=== PATIENT | male | born 1995 | race Caucasian/White ===

== ENCOUNTER 2020-01-18 02:48 | Emergency (ER) | payer OTHER ==
[~2020-01-18] VITALS: Ht 180 cm; Wt 99.7 kg
--- OUTSIDE RECORDS SUMMARY | 2020-01-18 02:57 | XMS REPORT | Continuity of Care Document ---
Author Organization Unknown Address Unknown Phone Unavailable Allergies There is no data. Medications There is no data. Problems There is no data. Procedures There is no data. Results There is no data. Encounters ACCT No. Visit Date/Time Discharge Status Pt. Type Provider Facility Loc./Unit Complaint [id number] 01/18/2020 02:53:[address] Emergency GORGE FERRER DO Via [facility] RT HAND, MIDDLE FINGER SMASH ED-
[2020-01-18] MEDS ORDERED: TETANUS,DIPTH,PERTUSS P/F (BOOSTRIX) 0.5 ML VIAL IM ONE (03:00)
[2020-01-18] MEDS ORDERED: LIDOCAINE 1% INJ 20 ML 20 ML VIAL INJ ONE (03:00)
--- NOTE | 2020-01-18 03:07 | ED Upper Extremity ---
General Stated Complaint: RT HAND, MIDDLE FINGER SMASHED-WC Source: patient History of Present Illness Date Seen by Provider: Jan 18, 2020 Time Seen by Provider: 02:54 Initial Comments PT ARRIVES VIA POV FROM WORK AT [facility] HE WAS USING A SLEDGE HAMMER, AND HIS HAND SLIPPED AND IT HIT A METAL BAR, AND HIS RIGHT MIDDLE FINGER WAS SMASHED BETWEEN THE METAL BAR AND THE HANDLE OF THE SLEDGE HAMMER OCCURRED JUST PRIOR TO ARRIVAL NO OTHER INJURIES NO PRIOR INJURY TO THIS HAND PT IS RIGHT HANDED LAST TETANUS SHOT IS UNKNOWN Allergies and Home Medications Allergies Coded Allergies: No Allergy Information Available (Unverified , 01/18/20) Patient Home Medication List Home Medication List Reviewed: Yes Review of Systems Constitutional: no symptoms reported Musculoskeletal: see HPI Skin: other (NAIL NEARLY COMPLETELY AVULSED) Psychiatric/Neurological: No Symptoms Reported, Anxiety Past [id number]-[id number] Hx Past Med/Social Hx: Reviewed and Corrections made Patient Social History Recent Foreign Travel: No Contact w/Someone Who Travel: No Past Medical History Surgeries: Yes (RIGHT TIB/FIB ORIF) Orthopedic Respiratory: No Cardiac: No Neurological: No Genitourinary: No Gastrointestinal: No Musculoskeletal: Yes (OPEN R TIB-FIB FX/ORIF) Endocrine: No HEENT: No Psychosocial: No Integumentary: No Physical Exam Vital Signs Vital Signs - First Documented 01/18/20 02:48 Temp 37.0 Pulse 98 Resp 20 B/P (MAP) 148/103 (118) Pulse Ox 98 Capillary Refill : Height, Weight, BMI Height: '" Weight: lbs. oz. kg; BMI Method: General Appearance: WD/WN, no apparent distress, other (ANXIOUS) Hand: Right (MIDDLE FINGER--NAIL ALMOST COMPLETELY AVULSED AND COMPLETELY DETACHED AT PROXIMAL ASPECT-ONLY THINLY ATTACTED AT DISTAL ASPECT. MUCH MACER ATED TISSUE. OPEN FRACTURE, WITH NEAR AMPUTATION. FINGER TIP IS PINK IN COLOR. DISTAL SENSORY/VASCULAR INTACT. ) Neurologic/Tendon: normal sensation Neurologic/Psychiatric: operations mgr II-XII nml as tested, no motor/sensory deficits, alert, oriented x 3 Skin: normal color, warm/dry, tattoos/piercings, other ( ABOVE) Procedures/Interventions Other Wound Location RIGHT MIDDLE FINGER Wound Length (cm): 3 Wound's Depth, Shape: irregular, stellate, nail-avulsed, contused tissue, bone, sub Q Wound Explored: clean Irrigated w/ Saline (ccs): 100 Betadine Prep?: No (BETASEPT) Anesthesia: 1% Lidocaine Wound Debrided: minimal Suture: Ethlion Suture Size: 4-0 Number of Sutures: 7 Layer Closure?: 1 Sterile Dressing Applied?: Yes Progress NAIL REMOVED--ONLY THINLY ATTACHED AT DISTAL EDGE NAILBED WITH MUCH MACERATED TISSUE, BONE EXPOSED, AND NEAR-AMPUTATION OF FINGERTIP--RE-APPROXIMATED ALL TISSUES OF NAILBED AND FINGER TIP. TIP OF FINGER REMAINS PINK. PT TOLERATED WELL Splinting and Joint Reduction : Splint Application: Finger Progress/Results/Core Measures Results/Orders My Orders Orders - GORGE FERRER DO Dipht,Pertuss(Acell),Tet Adult (Boostrix (01/18/20 03:00) Finger(S) (01/18/20 02:58) Lidocaine 1% Inj 20 Ml (Xylocaine 1% Inj (01/18/20 03:00) Medications Given in ED Current Medications Medications Dose Ordered Sig/Nahum Route Start Time Stop Time Status Last Admin Dose Admin Diphtheria/ Tetanus/Acell Pertussis 0.5 ml ONCE ONCE IM 01/18/20 03:00 01/18/20 03:01 DC 01/18/20 03:12 0.5 ML Lidocaine HCl 20 ml ONCE ONCE INJ 01/18/20 03:00 01/18/20 03:01 DC 01/18/20 03:13 20 ML Vital Signs/I&O 01/18/20 02:48 Temp 37.0 Pulse 98 Resp 20 B/P (MAP) 148/103 (118) Pulse Ox 98 Progress Progress Note : Progress Note PT ADVISED OF POSSIBILITY OF INFECTION AND LOSS OF PART OF FINGER Diagnostic Imaging Comments XRAYS RIGHT MIDDLE FINGER-COMMINUTED FRACTURE OF TUFT. PENDING RADIOLOGIST REVIEW Reviewed: Reviewed by Me Departure Impression Primary Impression: NEAR- AMPUTATION OF RIGHT MIDDLE FINGER TIP Additional Impressions: OPEN TUFT FRACTURE RIGHT MIDDLE FINGER Dgtfrlwlku-avtvxlptn-hyhaera (DPT) vaccination administered at current visit Disposition: HOME, SELF-CARE Condition: Stable Departure-Patient Inst. Referrals: NO,LOCAL PHYSICIAN (PCP) Primary Care Physician YANE WAGNER MD Patient Instructions: Amputation of the Finger or Fingertip (DC), Diphtheria and Tetanus Toxoids, and Acellular Pertussis Vaccine, [id number], Nail Avulsion (DC) Add. Discharge Instructions: LEAVE DRESSING IN PLACE UNTIL YOU ARE SEEN BY SPECIALIST IF WOUND BLEEDS THROUGH DRESSING, APPLY ADDITIONAL GAUZE, APPLY PRESSURE AND ALEC VATE FOLLOW UP WITH DR. WAGNER ( ORTHOPEDIC SURGEON TURN SUPERVISOR ) TOMORROW FOR FURTHER CARE ALSO FOLLOW UP WITH OCCUPATIONAL HEALTH THIS WEEK Scripts Hydrocodone/Acetaminophen (Hydrocodone-Acetamin 5-325 mg) 1 Each Tablet 1 EACH PO Q4-6 HOURS PRN for PAIN, #20 TAB Prov: GORGE FERRER DO 01/18/20 Sulfamethoxazole/Trimethoprim (Bactrim Ds Tablet) 1 Each Tablet 1 EACH PO BID, #20 TAB Prov: GORGE FERRER DO 01/18/20 GORGE FERRER DO Jan 18, 2020 03:07
[2020-01-18] MEDS ORDERED: RX-HYDROCODONE/APAP 5/325 MG #4 TAB PK PO PRN (03:45)
[2020-01-18] MEDS ORDERED: RX-TRIMETH/SULFA. 160-800 MG (BACTRIM DS) TAB PPK#2 PO STA (03:45)
[2020-01-18] MEDS ORDERED: HYDR-83 PO (04:00)
[2020-01-18] MEDS ORDERED: SULF1TAB35 PO (04:00)
[2020-01-18 04:15] VITALS: BP 142/101
--- NOTE | 2020-01-18 06:12 | Diagnostic Imaging Report ---
Indication: Crushed fingertip right hand 3 views the right hand show a comminuted fracture of the tuft of the distal phalanx of the right middle finger. There appears be soft tissue disruption at the same level. IMPRESSION: Comminuted compound fracture of the tuft of distal phalanx of the right middle finger. Dictated by: Dictated on workstation # [id number]
== END 2020-01-18 04:15 | disposition home or self-care (01) ==
LOC: ER 02:53
DX: S68.622A Partial traumatic transphalangeal amputation of right middle finger, initial encounter (principal); S62.602B Fracture of unspecified phalanx of right middle finger, initial encounter for open fracture; Z23 Encounter for immunization; W23.1XXA Caught, crushed, jammed, or pinched between stationary objects, initial encounter
CPT/HCPCS: 12002; 73140; 90471; 90715